=== PATIENT | female | born 1970 | race Caucasian/White ===

== ENCOUNTER 2017-02-15 09:58 | Emergency (ER) | payer BC ==
[~2017-02-15] VITALS: Ht 152.4 cm; Wt 134.0 kg
[2017-02-15 10:03] VITALS: BP 176/84; PULSE 77; RESP 15; TEMP 97.9; O2SAT 100
[2017-02-15] MEDS ORDERED: metFORMIN HCL 500 MG TAB PO ONE (10:15)
[2017-02-15] MEDS ORDERED: INSULIN ASPART 1,000 UNITS/10 ML VIAL SQ ONE (10:15)
[2017-02-15] MEDS ORDERED: DIOV320T6 PO (10:18)
[2017-02-15] MEDS ORDERED: METF1000 PO (10:18)
--- NOTE | 2017-02-15 10:18 | PD ---
HPI Chief Complaint: Medication Refill Request Time Seen by Provider: 10:14 Travel History International Travel<30 days: No Contact w/Intl Traveler<30days: No Traveled to known affect area: No History of Present Illness HPI 47 year-old woman history diabetes and hypertension who presents to the emergency department because she forgot her medications and is not to get on a cruise ship. She was nervous because her blood pressure was 300 this morning. States she's been urinating a little bit more than normal. She otherwise has been feeling well and healthy. No other complaints. History Past Medical History Narrative Medical Diabetes Hypertension Social History Alcohol Use: Yes (occasional ) Tobacco Use: No Allergies-Medications (Allergen,Severity, Reaction): Coded Allergies: No Known Allergies (Unverified , 02/15/17) Review of Systems Except as stated in HPI: all other systems reviewed are Neg Physical Exam Narrative GENERAL: Well-appearing 47 year-old woman, no acute distress. SKIN: Warm and dry. CARDIOVASCULAR: Warm and well perfused. RESPIRATORY: Normal rate and effort. NEUROLOGICAL: Awake and alert. No gross deficits. Data Data Last Documented VS Vital Signs Date Time Temp Pulse Resp B/P Pulse Ox O2 Delivery O2 Flow Rate FiO2 02/15/17 10:03 97.9 77 15 176/84 100 MDM Medical Decision Making Medical Screen Exam Complete: Yes Emergency Medical Condition: Yes Differential Diagnosis Hyperglycemia, hypertension, dehydration, other Narrative Course 47-year-old woman presents emergent department for medication refill after she got her medications at home. Blood sugars over 5 year-old woman were small dose of insulin, restart her metformin. She took 500 and her friends metformin this morning. Diagnosis Primary Impression: Hyperglycemia Additional Impression: Hypertension Additional Instructions: Check blood sugar regularly. Take medications as prescribed. Drink plenty of non-sugary fluids to stay well-hydrated. Avoid high glycemic index food such as sugars and carbohydrates. Med/Other Pt SpecificInfo: Prescription(s) given Scripts Metformin 1,000 Mg Tab1,000 Mg PO BIDPC #60 TAB Ref 0 With meals Prov:Daniel Yusuf MD 02/15/17 Valsartan-Hydrochlorothiazide (Diovan Hct)320-25 Mg Tab1 Tab PO DAILY #30 TAB Ref 0 Prov:Daniel Yusuf MD 02/15/17 Disposition: 01 DISCHARGE HOME Condition: Stable Daniel Yusuf MD February 15, 2017 10:18
[2017-02-15 10:40] VITALS: BP 162/70
== END 2017-02-15 10:59 | disposition home or self-care (01) ==
LOC: NEPD 09:58
DX: I10 Essential (primary) hypertension (principal); E11.65 Type 2 diabetes mellitus with hyperglycemia; Z79.899 Other long term (current) drug therapy
CPT/HCPCS: 96372; 99281; J1815